=== PATIENT | female | born 1950 | race African-American/Black ===

== ENCOUNTER → 2017-09-01 | Outpatient (CLI) | payer BC | END | disposition home or self-care (01) | LOC: KCIC MAMMO 11:20 | DX: Z12.31 Encounter for screening mammogram for malignant neoplasm of breast (principal) | CPT/HCPCS: 77067 ==

== ENCOUNTER → 2017-09-03 | Outpatient (CLI) | payer BC | END | disposition home or self-care (01) | LOC: KCIC MRI 07:52 | DX: G45.4 Transient global amnesia (principal); J34.1 Cyst and mucocele of nose and nasal sinus; I99.8 Other disorder of circulatory system; R90.82 White matter disease, unspecified | CPT/HCPCS: 70551; 93880 ==